=== PATIENT | male | born 1945 | race Caucasian/White ===

== ENCOUNTER 2016-06-08 09:20 | Inpatient (IN) | payer MEDICARE ==
[~2016-06-08] VITALS: Ht 167.6 cm; Wt 44.2 kg
--- NOTE | ~2016-06-08 | PR ---
[place], [place] PROGRESS NOTE NAME: ALE SALINAS [facility] #: [id number] UNIT #: [id number] ROOM: 408 DOCTOR: DANIELA MICHELLE MD,YANIRA BIRTHDATE: [birth year] DOS: 06/12/2016 SUBJECTIVE: He has been noted comfortable at this time without any respiratory distress. The patient has been noted in confusional status at the present time and was noted with talking to himself. There are no signs of respiratory distress. OBJECTIVE: VITAL SIGNS: Normal temperature, respiratory rate 18, heart rate 91, blood pressure 130/78. Pulse oxygen saturation noted on 1 liter nasal cannula 98% saturation. HEENT: Shows head was atraumatic. Eyes nonicterus. NECK: Supple. CARDIOVASCULAR SYSTEM: S1, S2 is audible. LUNGS: The patient was noted without any wheezing or crackles. The breath sounds noted mildly decreased bilaterally. ABDOMEN: Soft, nontender. LABORATORY DATA: CMP done this morning, patient noted normal BUN and creatinine. Potassium 3.4. CBC: WBC count normal, hemoglobin 9.2, hematocrit 28.4, platelet count 143,000. IMPRESSION: 1. The patient who has been currently noted with change in mental status and confusion, rule out hypercarbia for this patient. 2. Acute exacerbation of chronic obstructive pulmonary disease, acute tracheobronchitis with intermittent sputum expectoration and chest congestion. PLAN OF TREATMENT: Order the arterial blood gases for this patient for assessment of the hypercarbia in ventilatory status. In the meantime, continue treatment, plan of management. Usual care. All other supportive therapy, plan of care and management. YANIRA SUAREZ MD CM:PNTRANS [id number] YANIRA MICHELLE MD 06/12/16 1420 interface
--- NOTE | ~2016-06-08 | CON ---
[place], [place] RE[facility] OF CON[facility]ULTATION [id number] UNIT #: [id number] ROOM: 408 DOCTOR: KARY DEE ED.D (DEVIKA) BIRTHDATE: [birth year] DOS: 06/12/2016 HISTORY OF PRESENT ILLNESS: The patient is a 71-year-old male referred by Dr. Barros for competency evaluation. At the present time, this patient is on the 4th floor at [facility]. He was admitted from a local assisted living facility. I believe the name of the facility is the [facility]. This patient's medical history is pertinent for urinary tract infection, hypertension, COPD, atrial fibrillation, GI bleed, anemia, vitamin D deficiency, coronary artery disease, and benign prostatic hypertrophy. I attempted to interview this patient, but he somewhat alert, but he was not oriented, whatsoever. After speaking with the nurse, he was oriented to time yesterday, but today he was unable to answer any questions whatsoever. It is clear that this patient is not competent to make informed healthcare decisions. I am not certain whether or not this patient does have a healthcare power of payroll director, but he is clearly not capable of making any decisions on his own. Case management services should be involved to find out whether or not he has a power of payroll director for healthcare, but he is unable to make any decisions whatsoever. He appears to be quite delirious and was apparently seeing things, although today cannot even communicate that issue. DIAGNOSIS: Delirium, not otherwise specified. RECOMMENDATIONS: 1. The [facility] facility should be contacted regarding his healthcare power of payroll director. 2. If he has healthcare surrogate, they should be making all decisions because he is clearly not competent to make informed healthcare decisions. Thank you very much for this consult. KARY DEE ED.D CM:CONSTR:REPORT OF CONSULTATION 1216 06/12/16 1340 interface
--- NOTE | ~2016-06-08 | PR ---
[place], [place] PROGRESS NOTE NAME: ALE SALINAS UNIT #: [id number] ROOM: 408 DOCTOR: YANIRA COBB MD BIRTHDATE: [birth year] DOS: 06/13/2016 PULMONARY PROGRESS NOTE SUBJECTIVE: The patient was seen and examined on 06/13/2016. He has been noted comfortable at this time, resting on his bed. He has been noted with improvement in the mental status changes. OBJECTIVE: VITAL SIGNS: The patient shows a normal temperature, respiratory rate 20, heart rate 99, blood pressure 120/77. Pulse oxygen saturation of the patient was recorded as 91% on 3 liters nasal cannula. HEENT: Examination shows head was atraumatic. Eyes nonicterus. NECK: Supple. CARDIOVASCULAR: S1, S2 audible. LUNGS: The patient was noted without any wheezing or crackles at this time. ABDOMEN: Soft, nontender. LABORATORY DATA: CBC of the patient this morning, hemoglobin 9.5, hematocrit 30.3, platelet count was normal. The vancomycin trough level yesterday noted normal. Arterial blood gases pH of 7.46, pCO2 of 37, pO2 of 63 noted on 2 liters nasal cannula yesterday. BMP was noted normal today. IMPRESSION: 1. The patient with reduction and gradual improvement noted in the respiratory status for acute exacerbation of chronic obstructive pulmonary disease. 2. Change in mental status, exact etiology unclear. The patient seemed to be appearing better today at the time of the assessment. 3. Cough, which has been noted nonproductive for the patient intermittently. 4. Overall debility and muscle deconditioning. PLAN OF TREATMENT: Continue optimizing nutrition status. Change the dose of Solu-Medrol to 40 mg daily for this patient from tomorrow. All other supportive plan and management. Nutritional support. [place], [place] PROGRESS NOTE NAME: ALE SALINAS UNIT #: [id number] ROOM: 408 DOCTOR: YANIRA COBB MD BIRTHDATE: [birth year] YANIRA SUAREZ MD CM:PNTRANS [id number] YANIRA MICHELLE MD 06/13/16 4446 interface
--- NOTE | ~2016-06-08 | PR ---
[place], [place] PROGRESS NOTE NAME: ALE SALINAS UNIT #: [id number] ROOM: 408 DOCTOR: YANIRA COBB MD BIRTHDATE: [birth year] DOS: 06/11/2016 SUBJECTIVE: He has been still noted chest congestion and coughing. Denies symptoms of abdominal pain. He has been noted small amount of sputum expectoration. Culture of the sputum for the patient was noted no bacterial growth, which were taken in a couple of days ago. OBJECTIVE: VITAL SIGNS: Showed normal temperature, respirations 18, heart rate of 139-99. The blood pressure 160/80-150/80. Pulse oxygen saturation of the patient recorded on 1 liter nasal cannula 96% saturation. HEENT: Shows loss of muscle mastication. NECK: Supple. CARDIOVASCULAR SYSTEM: S1, S2 audible. LUNGS: Moderate general reduction of the breath sounds bilaterally, scattered wheezing. There were no crackles. ABDOMEN: Soft, nontender. LABORATORY DATA: The patient's CMP was noted as normal today. The CBC today: WBC count 13.7, hemoglobin 10.9, hematocrit 33.9, platelet count of 287,000. Sputum culture, no bacterial growth from the 21st of this month. ESR was noted as 11. Vancomycin level was noted yesterday 5.7. IMPRESSION: 1. The patient who has been currently treated for acute exacerbation of chronic obstructive pulmonary disease, acute tracheobronchitis still noted with ineffective cough, inability to expectorate sputum. 2. Protein-calorie malnutrition. 3. Previous history of oropharyngeal dysphagia. 4. Pericardial effusion. The patient was also noted echogenic material. The patient, etiology unclear. The patient has been currently monitored by the Cardiology Services. PLAN OF TREATMENT: Continue current plan of management. Use of the flutter valve, Mucinex, oral corticosteroids, bronchodilators, await for the assessment and any further plan of assessment form the Cardiology Services. Other usual previous treatment, plan to be continued. Usual care. All other supportive care and therapies. [place], [place] PROGRESS NOTE NAME: ALE SALINAS UNIT #: [id number] ROOM: 408 DOCTOR: YANIRA COBB MD BIRTHDATE: [birth year] YANIRA SUAREZ MD CM:PNTRANS 00 20 YANIRA MICHELLE MD 06/11/161120 interface
--- NOTE | ~2016-06-08 | PR ---
[place], [place] PROGRESS NOTE NAME: ALE SALINAS UNIT #: [id number] ROOM: 408 DOCTOR: YANIRA COBB MD BIRTHDATE: [birth year] DOS: 06/10/2016 PULMONARY FOLLOWUP NOTE SUBJECTIVE: He has been noted with continued gradual reduction and improvement in the respiratory symptoms. The coughing has been subsiding. There were no symptoms of chest pain or any abdominal pain. Shortness of breath has been improving. OBJECTIVE: VITAL SIGNS: Showed normal temperature, respiratory rate 20, heart rate of 106-57, blood pressure is 147/90-134/84. The pulse oxygen saturation on 2 L nasal cannula 100% saturation. HEENT: Examination showed no new change. NECK: Supple. CARDIOVASCULAR SYSTEM: S1, S2 audible. LUNGS: Shows scattered occasional wheezing, no crackles. ABDOMEN: Soft, flat, nontender. EXTREMITIES: Show no edema. LABORATORY DATA: Culture of the sputum preliminary noted with normal marlys for the patient. Final culture results are pending from 06/08/2016. Echocardiogram of the patient that was done for the patient on 06/09/2016 of the patient was assessed by the Cardiology Services for the patient described as findings of left ventricular ejection 70%. Small to moderate pericardial effusion for the patient was described with echogenic material. There was no tamponade. The culture of the urine for the patient noted with greater than 100,000 colony forming units of gram-positive cocci. IMPRESSION: 1. Resolving acute exacerbation of chronic obstructive pulmonary disease with acute tracheobronchitis of the patient. 2. Moderate protein-calorie malnutrition status as well. 3. Pericardial effusion of the patient with some echogenic material for the patient, significance was unknown, might require further assessment with the possibility of pericardial fluid drainage for this patient for further assessment. PLAN OF TREATMENT: From the pulmonary standpoint, no changes in treatment needs to be done. Continue optimizing nutritional status. Continue other supportive therapy, plan of management, and other care. Usual treatment, all other supportive care and therapies. Usual medical management. Continuation of current antibiotics. [place], [place] PROGRESS NOTE NAME: ALE SALINAS UNIT #: [id number] ROOM: 408 DOCTOR: YANIRA COBB MD BIRTHDATE: [birth year] YANIRA SUAREZ MD CM:PNBROWN [id number] YANIRA MICHELLE MD 06/10/16 1320 interface
--- NOTE | ~2016-06-08 | PR ---
[place], [place] PROGRESS NOTE NAME: ALE SALINAS [facility] #: [id number] UNIT #: [id number] ROOM: 408 DOCTOR: DANIELA MICHELLE MD,YANIRA BIRTHDATE: [birth year] DOS: 06/14/2016 SUBJECTIVE: He has been noted with symptoms of hallucinations intermittently. Denies symptoms of chest pain. He denies any symptoms of sputum expectoration, was noted with cough, shortness of breath was noted absent at rest. OBJECTIVE: VITAL SIGNS: Normal temperature, respiratory rate 20, heart rate 97, blood pressure 170/78-131/72. The pulse oxygen saturation for the patient recorded on 3 liters nasal cannula 97% saturation. HEENT: Shows head was atraumatic. Eyes nonicterus. NECK: Supple. CARDIOVASCULAR SYSTEM: S1, S2 audible. LUNGS: For the patient was noted without any wheezing or crackles at the present time. ABDOMEN: Soft, nontender. LABORATORY DATA: Urine for legionella antigen noted negative. CBC this morning, hemoglobin 9.3, hematocrit 29.5, platelet count was normal, WBC count was normal. BMP of the patient this morning was noted as potassium was 3.3. IMPRESSION: The patient with hallucination. The patient with psychotic symptom, the patient was noted with resolving acute exacerbation of chronic obstructive pulmonary disease, acute tracheobronchitis progressively. PLAN OF TREATMENT: Continuation of the bronchodilators, oxygen supplementation, reduce the Solu-Medrol further down to 30 mg daily. Other supportive plan of management as well. Psychiatry consultation, the patient will be requested for this patient to assess the patient for current psychotic symptoms and to start the patient on appropriate medication if needed. Other supportive plan of management at this time will be continued. Usual medical management, plan of care. YANIRA SUAREZ MD CM:PNBROWN [id number] YANIRA MICHELLE MD 06/14/16 1501 interface
--- NOTE | ~2016-06-08 | PR ---
[place], [place] PROGRESS NOTE [id number] UN[facility] #: [id number] ROOM: 408 DOCTOR: DANIELA MICHELLE MD,YANIRA BIRTHDATE: [birth year] DOS: 06/15/2016 SUBJECTIVE: The patient has been still noted with hallucination, the patient with confusional status. He has not been noted symptoms of chest pain, coughing with sputum expectoration. OBJECTIVE: VITAL SIGNS: Shows normal temperature, respiratory rate 18, heart rate 88, and blood pressure 144/74. The pulse oxygen saturation on 2 liters nasal cannula 98% saturation. HEENT: Shows no acute change. NECK: Supple. CARDIOVASCULAR SYSTEM: S1, S2 audible. LUNGS: Noted without any wheezing. There were no crackles. ABDOMEN: Soft, nontender. IMPRESSION: The patient who has been still noted with hallucination with the psychotic symptoms with resolving acute exacerbation of chronic obstructive pulmonary disease, acute tracheobronchitis. Arterial blood gases which were done previously do not show hypercarbia. PLAN OF TREATMENT: Continuation of the current medical management. The patient was seen by the Psychiatry Services and was started on the Cymbalta 30 mg daily. Solu-Medrol dose has been also decreased for this patient to 30 mg daily. Continue bronchodilator treatment, plan of management. Usual care. YANIRA SUAREZ MD CM:PNTRANS 0930 1503 YANIRA MICHELLE MD 06/15/16 1503 interface
--- NOTE | ~2016-06-08 | CON ---
[place], [place] REPORT OF CONSULTATION NAME: ALE SALINAS [facility] #: [id number] UNIT #: [id number] ROOM: 408 DOCTOR: YANIRA COBB MD BIRTHDATE: [birth year] DOS: 06/09/2016 REASON FOR CONSULTATION: Assess the patient with symptoms of shortness of breath and other problems. REQUESTING PHYSICIAN: Hospitalist services. HISTORY OF PRESENT ILLNESS: This is a 71-year-old white male known with history of end-stage emphysema, chronic hypoxic respiratory failure, stays in assisted living facility. The patient presented to the hospital for the patient as he has noted symptoms of increased shortness of breath started 24 hours prior to the presentation to the hospital. Shortness of breath has been noted progressively worse for this patient, associated with some cough as well. The patient denies any symptoms of chest pain or any abdominal pain with that. He also stated that he has been wheezing. The coughing has been noted moderate to severe with some sputum expectoration described this morning. REVIEW OF SYSTEMS: The remaining systems were reviewed with this patient. They were noted as follows: CONSTITUTIONAL SYMPTOMS: The patient noted symptoms of fatigue and tiredness. He does not recall any fever. Denies any chills. EYES: Denies any burning, redness, or tenderness. EARS, NOSE, AND THROAT SYMPTOMS: No sore throat, hoarseness, or otalgia. CARDIOVASCULAR: Denies anginal pain, edema or pain of the lower extremities. GASTROINTESTINAL SYMPTOMS: Denies any symptoms of hematemesis, melena, or hematochezia. The patient has been noted with history of past oropharyngeal dysphagia, which has been treated with speech therapy and modification of diet with thickened liquids. GENITOURINARY SYMPTOMS: No dysuria, suprapubic pain, hematuria. MUSCULOSKELETAL SYMPTOMS: Denies acute joint pain, redness, or tenderness. SKIN: No lesions or rashes. CENTRAL NERVOUS SYSTEM: General weakness for the patient was described without any symptoms of current seizures for the patient, tingling sensation, migraine headache, or diplopia. Remaining systems were reviewed with the patient. They were noted all negative. PAST MEDICAL HISTORY: 1. Noted with recent hospitalization in this hospital under the care of hospitalist services for 2 days for the patient for the medical management of failure to thrive with malnutrition status, chronic anemia, and other problems. The patient had been treated in this hospital and then subsequently discharged to the assisted living facility. 2. Past medical history of centrilobular emphysema. 3. History for allergic rhinitis. 4. Chronic oropharyngeal dysphagia. 5. Chronic hypoxic respiratory failure, use of oxygen 2-3 L nasal cannula continuous use. 6. Hypercholesterolemia. 7. Chronic atrial fibrillation. [place], [place] REPORT OF CONSULTATION NAME: ALE SALINAS UNIT #: [id number] ROOM: [facility] DOCTOR: EDDIE COBB MDM BIRTHDATE: [birth year] 8. Past respiratory failure, intubation, and mechanical ventilation. 9. Abdominal aortic aneurysm. PAST SURGICAL HISTORY: Noted as: 1. Intubation and mechanical ventilation. 2. Fiberoptic bronchoscopy. 3. EGD and colonoscopy. 4. Endovascular stent for the patient for the ____ abdominal aortic aneurysm. SOCIAL HISTORY: The patient is not , does not have any children or any close family relatives. He lives in assisted living facility. History of tobacco use noted since teenager, a pack of cigarettes per day with ____ use of a few cigarettes intermittently at times. There is no history of alcohol use or illicit drug use. FAMILY HISTORY: Noted unknown. MEDICATIONS: Current administered medication for the patient were noted as use of simvastatin, vitamin D, Plavix, finasteride, aspirin, loratadine, Lovenox for DVT prophylaxis, Protonix, Flomax, Dulera, Flonase, Mucinex, IV Solu-Medrol 60 mg q. 8 hours, Levaquin, and IV Zosyn and other antibiotics. DRUG ALLERGIES: Noted as no known drug allergies. PHYSICAL EXAMINATION: GENERAL: This is a 71-year-old male who has currently noted comfortable without any distress. Height of 5 feet 6 inches, weight of 97 pounds for this patient with BMI 15.7. VITAL SIGNS: For the patient were recorded as normal temperature, respiratory rate 18-20, heart rate of 80-82, blood pressure 132/81-118/90. Pulse oxygen saturation for the patient noted on 2 L nasal cannula 99% saturation. HEENT: Head was atraumatic. Eyes: No icterus. NECK: Supple. CARDIOVASCULAR: S1, S2 is audible. LUNGS: The patient was noted without any acute crackles. The wheezing of the patient was noted in the lungs bilaterally. ABDOMEN: Soft, nontender. Bowel sounds present. EXTREMITIES: Shows no edema, clubbing, or cyanosis. The extremities show loss of muscle mass for the patient. SKIN: No lesions or rashes. CENTRAL NERVOUS SYSTEM: Cranial nerves 2-12 intact for this patient was noted without any gross focal deficit. LABORATORY DATA: CBC for this patient that were noted on 06/08/2016, WBC count was normal, hemoglobin 10.6, hematocrit 32.3, platelet count 241,000. Lactic acid 1.2 noted at admission on 06/08/2016. CMP on admission, 06/08/2016, noted normal BUN and creatinine, potassium 3.2, sodium 146. Albumin 2.4. The arterial blood gas on 4 L nasal cannula, pH of 7.43, pCO2 of 52, pO2 of 133. CK-MB and troponin of the patient which were done on the for this patient were noted with a troponin 0.068 with normal CK and MB. The first set for the [place], [place] REPORT OF CONSULTATION NAME: ALE SALINAS UNIT #: [id number] ROOM: [facility] DOCTOR: DANIELA MICHELLE [facility] BIRTHDATE: [birth year] patient on the shows troponin 0.089 with normal CPK and MB. PT/PTT of the patient this morning was noted normal. CMP this morning was noted as normal BUN and creatinine. Albumin still noted mildly decreased at 3.0. Chest x-ray of the patient that was reviewed for this patient on 06/08/2016 for the patient shows suspected infiltration in the left perihilar area. CT scan of the chest for the patient that was done for this patient on this admission on 06/08/2016 for this patient was reviewed, shows small patches of focal infiltration were noted in the left lower lobe and the right lower lobe with a subcentimeter few nodules were noted in the lung with diffuse emphysematous changes in the lungs bilaterally with centrilobular emphysema. There was no lymphadenopathy. The abdominal CT scan for the patient was also completed for this patient that was ordered for this admission for the patient with contrast for the patient described asymptomatic 5.1 x 4.4 cm aneurysm of the abdomen with intraluminal stent grafts. IMPRESSION: 1. The patient who has been currently noted with multifocal small pneumonia for this patient with acute exacerbation of chronic obstructive pulmonary disease. 2. The patient with evidence of severe centrilobular emphysema for the patient as well. 3. History of low-grade intermittent tobacco use at time. 4. Severe protein calorie malnutrition. 5. Oropharyngeal dysphagia history was known previously as well. 6. History of abdominal aortic aneurysm previously. 7. Recurrent pulmonary nodules. The patient may be considered for infectious etiology; however, metastatic malignancy would be considered with further assessment of the patient as an outpatient for current abnormal findings noted on CT scan of the chest. The etiology for patient of current infection to be considered as gram-positive and gram-negative infections. PLAN OF TREATMENT: Collect the sputum for Gram stain and culture. Continue bronchodilators. Reduce the dose of Solu-Medrol. Antibiotic spectrum to be reduced after the availability of the sputum and blood cultures. Use of the Mucinex for the patient in the form of Robitussin-DM to help mobilize secretions. Obtain the prealbumin level for the patient. Order the patient's nutritional supplements for this patient. Speech assessment of the patient needs to be done as well. The patient would not require possibility of any repeat modified barium swallow. At the present time, he is being empirically treated for the patient's past known history of oropharyngeal dysphagia with nectar thick consistency of the liquids. Supportive plan of management. Further assessment as an outpatient for the recurrent pulmonary nodules for this patient to be done for the patient to rule out any malignancy. Abstinence from tobacco use was advised. Aspiration precautions. Other supportive plan of management. Thanks for allowing me to participate in the care of this patient. [place], [place] REPORT OF CONSULTATION NAME: ALE SALINAS UNIT #: [id number] ROOM: 408 DOCTOR: YANIRA COBB MD BIRTHDATE: [birth year] YANIRA SUAREZ MD CM:CONSTR:REPORT OF CONSULTATION 1230 06/09/16 1341 interface
--- NOTE | ~2016-06-08 | CON ---
[place], [place] REPORT OF CONSULTATION NAME: ALE SALINAS UNIT #: [id number] ROOM: 408 DOCTOR: DARYN MCKEON MD BIRTHDATE: [birth year] DOS: 06/11/2016 REASON FOR CONSULTATION: Tachycardia. CONSULTING PHYSICIAN: Dr. Sosa. CLINICAL HISTORY: The patient is a 71-year-old patient with history of hypertension, COPD who presented to the Emergency Room with shortness of breath, which is progressive, but he denies any chest pain, palpitations or dizziness. No syncope, no orthopnea. He was on supplemental oxygen at shelter. The patient is somewhat a poor historian and hence, history was obtained from the medical record as well as the Emergency Room documentation. No fever or chills. No nausea, vomiting, diarrhea. No blurred vision or double vision, no headaches. No hematuria, dysuria, or melena. The patient was found to have tachycardia and hence cardiology was consulted. REVIEW OF SYSTEMS: Review of the 8 systems negative except as mentioned above. PAST MEDICAL HISTORY: 1. Hypertension. 2. COPD. 3. Home oxygen. 4. Atrial fibrillation. 5. History of GI bleed. 6. Dyslipidemia. 7. Anemia. 8. Vitamin D deficiency. PAST SURGICAL HISTORY: History of cardiac stents, history of cataract surgery. SOCIAL HISTORY: The patient does not drink, does not use illicit drugs. The patient has a history of smoking, but quit about 4 to 5 years ago. FAMILY HISTORY: Father at the age of 76 from myocardial infarction. Mother at the age of 83 from cancer. ALLERGIES: The patient has no known drug allergies. HOME MEDICATIONS AND CURRENT MEDICATIONS: Reviewed. IMPRESSION: 1. Tachyarrhythmia, mostly sinus tachycardia. 2. Hypertension. 3. Paroxysmal atrial fibrillation. 4. Chronic obstructive pulmonary disease. 5. History of coronary artery disease. 6. Anemia. 7. Dyslipidemia. PHYSICAL EXAMINATION: [place], [place] REPORT OF CONSULTATION NAME: ALE SALINAS UNIT #: [id number] ROOM: 408 DOCTOR: DARYN MCKEON MD BIRTHDATE: [birth year] VITAL SIGNS: Blood pressure 158/90, pulse 118, respiratory rate is 20. GENERAL: Alert, comfortable, in no acute distress. HEENT: Pupils are round. No jaundice. NECK: Supple, no distended neck veins, no carotid bruit. CHEST: Symmetrical, nontender. LUNGS: Diffuse scattered rhonchi. HEART: Mostly irregular, slightly tachycardic, grade 1/6 systolic murmur. ABDOMEN: Benign, nontender. Bowel sounds normal. EXTREMITIES: Showed trace edema. Distal pulses are palpable. SKIN: Warm and dry. No cyanosis, no clubbing. NEUROLOGIC: The patient is alert, oriented. No focal neurologic deficit. REVIEW OF THE DIAGNOSTIC TESTS: Her labs and EKG reviewed. His echo from this admission showed EF of 70% with mild tricuspid regurgitation and a small to moderate pericardial effusion. His cardiac troponin was borderline elevated at 0.065. DIAGNOSTIC IMPRESSION: 1. Tachyarrhythmia, mostly sinus tachycardia. 2. Paroxysmal atrial fibrillation. 3. Borderline elevation of troponin, patient is chest pain free. 4. Anemia. 5. Dyslipidemia. 6. Chronic obstructive pulmonary disease. 7. Home oxygen. 8. Small to moderate pericardial effusion. 9. Mild tricuspid regurgitation. RECOMMENDATIONS: 1. He denies any chest pain. 2. Start a beta alma 25 mg p.o. twice a day for tachycardia and also blood pressure. 3. If his blood pressure tolerates, we will resume his home verapamil 240 mg. 4. Continue to monitor his heart rate and blood pressures. 5. There is no family at bedside. 6. Continue the rest of his current medications. DARYN MCKEON MD CM:CONSTR:REPORT OF CONSULTATION 10 06/12/16 8579 interface
--- NOTE | ~2016-06-08 | PROC NOTE ---
[place], [place] PROCEDURE NOTE [facility]: [id number] UNIT #: [id number] ROOM: 408 DOCTOR: ELI HADLEY BIRTHDATE: [birth year] DOS: MODIFIED BARIUM SWALLOW PAST MEDICAL HISTORY: The patient is a pleasant 71-year-old male who is very confused and unable to cooperate. He is even unable to feed himself. He is familiar to speech pathology as he had a modified in 04/2013 in which he silently aspirated thin liquids and was recommended nectar liquids with a regular diet. The patient is currently on a regular diet with recommendations for nectar liquids for bedside swallow per Speech. METHODS AND MATERIALS: The patient was in a wheelchair. He was viewed in the lateral plane. The study was done in conjunction with Dr. Gutierrez. The patient was then fed by this therapist. He was administered nectar thick liquid via teaspoon and cup, thin liquid via teaspoon and cup, pudding mixed with barium paste and a solid texture mixed with barium paste. ORAL PHASE: The patient demonstrated [id number] oral phase dysphagia with reduced ability to form and control a cohesive bolus on thin liquids. He did have improved bolus cohesion and control of nectar thick liquids via cup, the pudding and the solid. He had anterior lengthy chewing of the solid consistency, but it was adequate and he cleared his oral cavity. There was some loss of residue of liquid and barium paste that was mild that remained in his mouth from earlier presentations and he lost it posteriorly during chewing, it fell into the vallecula, but it did not affect the safety of his swallow. There was premature loss of thin liquid prior to the swallow, it fell into the vallecula, then the swallow was triggered, it was due to gravity and poor control of thin liquids, but no aspiration or penetration was noted. PHARYNGEAL PHASE: The patient demonstrated a mild delay with the swallow triggered in the vallecula averaging 2.0-2.5 seconds on all consistencies. He had adequate laryngeal elevation and airway protection. There was some mild amount of residue that remained in the pharynx, but it was cleared with sequential swallows and did not affect safety of his swallow. RECOMMENDATIONS AND IMPRESSIONS: Based on the above, it is recommended patient be placed on a nectar thick liquid diet with soft foods cut up for him. It is of concern that he has anterior and lengthy chewing and he is very confused, therefore regular foods may limit his p.o. intake. It is recommended he be assisted by staff as he is unable to feed, but is cooperative at bedside for someone to feed him. It is recommended he be sit upright 90 degrees and that you alternate liquids and foods and keep him upright 40 minutes after meals. When the patient is discharged, it is recommended he be seen by Speech to train staff and carry over safe swallowing strategies as well as consider patient for Michele water protocol to maintain hydration as he appears to be a candidate for the Michele water protocol based on his MBS and how he tolerated thin liquids under [employer] supervision and nursing supervision. The patient will be followed for caregiver training and assessment for safety with sips of thin liquid during inpatient stay; however, he is not a candidate for extensive speech therapy as he is unable to follow commands and cooperate due to cognitive status. [place], [place] PROCEDURE NOTE NAME: ALE SALNIAS UNIT #: [id number] ROOM: 408 DOCTOR: ELI HADLEY BIRTHDATE: [birth year] Thank you for this referral. ELI HADLEY CM:PROCNOTE:PROCEDURE NOTE [id number] ELI HADLEY
--- NOTE | ~2016-06-08 | PR ---
[place], [place] PROGRESS NOTE NAME[id number] UNIT #: [id number] ROOM: 408 DOCTOR: DAVID ALFARO MD BIRTHDATE: [birth year] DOS: 06/14/2016 CARDIOLOGY PROGRESS NOTE SUBJECTIVE: The patient was seen at his bedside today, 06/14/2016 for followup of atrial fibrillation. He is a 71-year-old man who has a history of dementia who presented to the hospital with shortness of breath. He was tachycardic on admission and was started on a beta alma for control of his tachycardia and blood pressure. He does seem to be tolerating this and verapamil quite well. Today, he was sleeping and lying almost flat when I entered the room, but he aroused easily. He denies any palpitations, chest pain or dyspnea at rest. PHYSICAL EXAMINATION: VITAL SIGNS: His pulse is 97 and somewhat irregular. Blood pressure is 170/78. He weighs 44.2 kg and has a body mass index of 15.7. NECK: Supple. He has no jugular distention. LUNGS: Respirations are unlabored. He has decreased breath sounds at the bases. HEART: Has distant tones which are very difficult to hear. ABDOMEN: Soft. EXTREMITIES: Showed no edema. LABORATORY DATA: Electrocardiogram shows sinus rhythm and sinus tachycardia with PACs. Hemoglobin is 9.3, white count 6800, platelet count 240,000. Sodium 146, potassium 3.3, BUN 21, creatinine 0.83. IMPRESSION: 1. Paroxysmal atrial fibrillation, the patient is currently in sinus rhythm. 2. Sinus tachycardia on admission, improved. 3. Hypertension. 4. Chronic obstructive pulmonary disease. 5. Dementia (Alzheimer's type). PLAN: We will continue to adjust his medications as tolerated by his heart rate and blood pressure. No other advanced cardiac evaluation is planned at this time. We thank Dr. Sosa and the hospitalist physicians for asking our advice regarding his care. [place], [place] PROGRESS NOTE NAME: ALE SALINAS UNIT #: [id number] ROOM: 408 DOCTOR: DAVID ALFARO MD BIRTHDATE: [birth year] DAVID ALFARO MD CM:PNTRANS [id number] DAVID ALFARO MD 06/14/162218 interface
--- NOTE | ~2016-06-08 | CON ---
[place], [place] REPORT OF CONSULTATION NAME: ALE SALINAS UNIT #: [id number] ROOM: 408 DOCTOR: MATIAS LAGUNAS MD BIRTHDATE: [birth year] DOS: 06/14/2016 CHIEF COMPLAINT: "Yeah, I don't know what is happening here." HISTORY OF PRESENT ILLNESS: This is a 71-year-old white male who was admitted approximately a week ago due to worsening COPD and shortness of breath. In the course of his treatment for medical conditions, he was found to be increasingly confused and also despondent. MENTAL STATUS: Psychiatrically, he is alert and oriented to self only, stating that he has been here for 1 or 2 days and he could not remember where he was living prior. His responses to me were often times inappropriate and disjointed and fragmented. He does appear depressed and despondent and was on the verge of tears at one point during the interview. DIAGNOSIS: Major depression, recurrent, and Alzheimer's dementia. PLAN: I will go ahead and start him on Cymbalta 30 mg at bedtime to help with his depression and anxiety. Also, start him on Exelon patch 4.6 mg a day. Once he is medically stable, he is a candidate for the [facility]. MATIAS LAGUNAS MD CM:CONSTR:REPORT OF CONSULTATION 0929 06/14/16 1002 interface
[~2016-06-08 09:20] MED LIST: ALAVERT10 M1 PO; ALBUTEROL0.09 MG/A2 INH; ALBUTEROL2.5 MG/0.5 INH; ALLERGY RELIEF10 M1 PO; ASPIRIN81 M1 PO; B12,B-12,B 12500 MC1 PO; CARDIZEM CD240 MG PO; CARDIZEM LA240 MG PO; CEFTIN500 MG PO; CLOPIDOGREL75 MG PO; COLACE-T100 MG PO; COLACE100 MG PO; D-1000 185 MG-11 TAB PO; DULCOLAX10 MG PO; LEVAQUIN500 M2 PO; LEVOFLOXACIN500 MG PO; LOPRESSOR25 MG PO; LORADAMED10 MG PO; MEDROL DOSEPAK4 MG PO; METOPROLOL25 MG PO; MOM30 ML PO; NASALIDE0.025 MG/A NAS; NASAREL1 EA NAS; NICOTINE T21 MG/24 H TD; OXYGEN NAS; PANTOPRAZOLE SO40 MG PO; PANTOPRAZOLE40 M1 PO; PREDNISONE10 MG PO; PROPAFENONE HC150 MG PO; PROSCAR5 M1 PO; SIMVASTATIN20 MG PO; SPIRIVA -- 3018 MCG INH; SPIRIVA18 MCG PO; SYMBICORT1 AE1 INH; SYMBICORT1 AER INH; TAMSULOSIN HCL0.4 MG PO; TYLENOL650 M1 PO; VERAPAMIL HCL240 MG PO; VERAPAMIL HCL80 MG PO; VITAM PO; VITAMIN A PO; VITAMIN D2400 IU PO; ZOCOR10 MG PO; ZOCOR20 MG PO
[2016-06-08 09:21] VITALS: BP 121/77
[2016-06-08 09:40] LABS: BASO % 0.2 % (0.0-1.0); EOS # 0.3 10*3/uL (0.0-0.4); EOS % 3.1 % (1.0-4.0); HEMATOCRIT 32.3 % (42.0-52.0); HEMOGLOBIN 10.6 g/dl (14.0-18.0); IG # 0.1 10*3/uL (0.0-0.1); LYMPH # 1.2 10*3/uL (1.3-4.4); MEAN CELL VOLUME 88.5 fl (80.0-94.0); MEAN CORPUSCULAR HGB CONC 32.8 g/dl (33.0-37.0); MEAN PLATELET VOLUME 9.3 fl (9.6-12.3); MONO # 0.6 10*3/uL (0.1-1.0); MONO % 7.1 % (3.0-9.0); NEUT # 6.4 10*3/uL (2.3-7.9); NEUT % 74.9 % (47.0-73.0); PLATELET COUNT AUTOMATED 241 10*3/uL (130-400); RED BLOOD COUNT 3.65 10*6/uL (4.50-5.90); WHITE BLOOD COUNT 8.6 10*3/uL (4.8-10.8)
[2016-06-08 09:49] LABS: PROTHROMBIN TIME 10.7 SECONDS (9.0-12.4)
[2016-06-08 09:56] LABS: ALBUMIN 3.3 gm/dl (3.1-4.5); ALKALINE PHOSPHATASE 61 U/L (45-117); BILIRUBIN, TOTAL 0.4 mg/dl (0.2-1.0); BUN 16 mg/dl (7-24); C-REACTIVE PROTEIN 1.69 MG/DL (0-0.3); CARBON DIOXIDE 36 mmol/L (21-32); CHLORIDE 100 mmol/L (98-107); CPK 28 U/L (39-308); EST GLOM FILT AFRICAN AMERICAN > 60 ml/min; GLUCOSE 114 mg/dL (65-99); MAGNESIUM 2.4 mg/dL (1.5-2.1); POTASSIUM 3.2 mmol/L (3.5-5.1); SGOT/AST 15 IU/L (3-35); SGPT/ALT 15 U/L (12-78); SODIUM 146 mmol/L (136-145); TOTAL PROTEIN 7.3 gm/dL (6.4-8.2)
[2016-06-08 09:57] LABS: CKMB < 0.5 ng/ml (0.5-3.6)
[2016-06-08 09:59] LABS: TROPONIN I 0.105 ng/ml (<0.045)
[2016-06-08 11:37] LABS: ABG BASE EXCESS 9.5 mmol/L (-2.0-2.0); ABG CO2 CONTENT 36.4 mmol/L (23-27); ABG HCO3 34.8 mmol/l (22-26); ABG TEMPERATURE 98.3 F (98.0-99.0); ARTERIAL BLOOD GAS PH 7.439 (7.35-7.45)
[2016-06-08 12:40] VITALS: BP 132/80
[2016-06-08 13:48] VITALS: BP 116/87
[2016-06-08 16:00] VITALS: BP 123/86
[2016-06-08 18:11] LABS: CKMB 0.8 ng/ml (0.5-3.6)
[2016-06-08 18:17] LABS: TROPONIN I 0.089 ng/ml (<0.045)
[2016-06-08 20:00] VITALS: BP 128/69
[2016-06-08 22:10] LABS: BILIRUBIN NEGATIVE (NEGATIVE); BLOOD 3+ (NEGATIVE); CLARITY SL CLOUDY (CLEAR); COLOR YELLOW (YELLOW); GLUCOSE NEGATIVE (NEGATIVE); KETONE TRACE (NEGATIVE); LEUKO ESTERASE TRACE (NEGATIVE); NITRITE NEGATIVE (NEGATIVE); PH 7.5 (5.0-9.0); PROTEIN TRACE (NEGATIVE); SPECIFIC GRAVITY 1.015 (1.005-1.030)
[2016-06-08 22:27] LABS: BACTERIA 2+; RBC 41-50 rbc/hpf (0-2); URINE REFLEX COMMENT YES (NO)
[2016-06-09] VITALS: BP 132/81
[2016-06-09 00:51] LABS: CKMB 1.2 ng/ml (0.5-3.6)
[2016-06-09 00:53] LABS: TROPONIN I 0.068 ng/ml (<0.045)
[2016-06-09 06:24] LABS: HEMATOCRIT 29.8 % (42.0-52.0); HEMOGLOBIN 9.4 g/dl (14.0-18.0); IG # 0.1 10*3/uL (0.0-0.1); LYMPH # 0.5 10*3/uL (1.3-4.4); LYMPH % 9.5 % (27.0-41.0); MEAN CELL VOLUME 91.1 fl (80.0-94.0); MEAN CORPUSCULAR HGB 28.7 pg (27.0-31.0); MEAN CORPUSCULAR HGB CONC 31.5 g/dl (33.0-37.0); MEAN PLATELET VOLUME 9.6 fl (9.6-12.3); MONO # 0.1 10*3/uL (0.1-1.0); MONO % 1.2 % (3.0-9.0); NEUT % 87.9 % (47.0-73.0); PLATELET COUNT AUTOMATED 221 10*3/uL (130-400); RED BLOOD COUNT 3.27 10*6/uL (4.50-5.90); RED CELL DISTRI WIDTH 14.8 % (0-14.5); WHITE BLOOD COUNT 5.7 10*3/uL (4.8-10.8)
[2016-06-09 06:31] LABS: CKMB 1.2 ng/ml (0.5-3.6)
[2016-06-09 06:35] LABS: TROPONIN I 0.065 ng/ml (<0.045)
[2016-06-09 06:37] LABS: HEMOGLOBIN A1c 4.5 % (4.8-5.6)
[2016-06-09 07:00] LABS: CHLORIDE 98 mmol/L (98-107); POTASSIUM 4.1 mmol/L (3.5-5.1); SODIUM 140 mmol/L (136-145)
[2016-06-09 07:03] LABS: PROTHROMBIN TIME 10.8 SECONDS (9.0-12.4)
[2016-06-09 07:17] LABS: ALKALINE PHOSPHATASE 54 U/L (45-117); BILIRUBIN, TOTAL 0.5 mg/dl (0.2-1.0); BUN 13 mg/dl (7-24); CARBON DIOXIDE 31 mmol/L (21-32); CHOLESTEROL 148 mg/dL (<200); EST GLOM FILT AFRICAN AMERICAN > 60 ml/min; FREE T4 1.21 ng/dl (0.76-1.46); GLUCOSE 123 mg/dL (65-99); HDL CHOLESTEROL 79 mg/dl (40-60); LDL CHOLESTEROL 58 mg/dL (9-159); PHOSPHOROUS 3.3 mg/dL (2.5-4.9); SGOT/AST 12 IU/L (3-35); SGPT/ALT 15 U/L (12-78); THYROID STIM HORMONE (HS) 0.564 uIU/ml (0.358-4.75); TOTAL PROTEIN 6.7 gm/dL (6.4-8.2); TRIGLYCERIDES 56 mg/dl (<150); VLDL CHOLESTEROL 11 mg/dL (6-40)
[2016-06-09 07:18] LABS: VITAMIN D, 25-HYDROXY 16.5 ng/mL (30-100)
[2016-06-09 07:19] LABS: FOLIC ACID 8.5 ng/mL (>5.38)
[2016-06-09 08:00] VITALS: BP 118/90
[2016-06-09 12:00] VITALS: BP 120/80
[2016-06-09 16:00] VITALS: BP 126/83
[2016-06-09 20:00] VITALS: BP 128/79
[2016-06-10] VITALS: BP 134/84
[2016-06-10 08:00] VITALS: BP 147/90
[2016-06-10 12:00] VITALS: BP 149/79
[2016-06-10 16:00] VITALS: BP 138/88
[2016-06-10 20:00] VITALS: BP 152/86
[2016-06-11] VITALS: BP 142/88
[2016-06-11 07:00] LABS: BASO % 0.1 % (0.0-1.0); HEMATOCRIT 33.9 % (42.0-52.0); HEMOGLOBIN 10.9 g/dl (14.0-18.0); IG # 0.2 10*3/uL (0.0-0.1); LYMPH # 1.3 10*3/uL (1.3-4.4); LYMPH % 9.4 % (27.0-41.0); MEAN CELL VOLUME 89.2 fl (80.0-94.0); MEAN CORPUSCULAR HGB 28.7 pg (27.0-31.0); MEAN CORPUSCULAR HGB CONC 32.2 g/dl (33.0-37.0); MEAN PLATELET VOLUME 9.7 fl (9.6-12.3); MONO # 1.2 10*3/uL (0.1-1.0); MONO % 8.8 % (3.0-9.0); NEUT % 80.2 % (47.0-73.0); PLATELET COUNT AUTOMATED 287 10*3/uL (130-400); RED CELL DISTRI WIDTH 15.8 % (0-14.5); WHITE BLOOD COUNT 13.7 10*3/uL (4.8-10.8)
[2016-06-11 07:29] LABS: ALBUMIN 3.5 gm/dl (3.1-4.5); ALKALINE PHOSPHATASE 49 U/L (45-117); BILIRUBIN, TOTAL 0.5 mg/dl (0.2-1.0); BUN 8 mg/dl (7-24); CARBON DIOXIDE 31 mmol/L (21-32); CHLORIDE 101 mmol/L (98-107); EST GLOM FILT AFRICAN AMERICAN > 60 ml/min; GLUCOSE 98 mg/dL (65-99); MAGNESIUM 2.2 mg/dL (1.5-2.1); POTASSIUM 3.7 mmol/L (3.5-5.1); SGOT/AST 30 IU/L (3-35); SGPT/ALT 24 U/L (12-78); SODIUM 142 mmol/L (136-145); TOTAL PROTEIN 7.4 gm/dL (6.4-8.2)
[2016-06-11 08:00] VITALS: BP 150/80; BP 160/80
[2016-06-11 12:00] VITALS: BP 158/90
[2016-06-11 16:00] VITALS: BP 148/93
[2016-06-11 20:00] VITALS: BP 142/86
[2016-06-12] VITALS: BP 135/95
[2016-06-12 05:09] LABS: RBC 3.93 x10E6/uL (4.14-5.80)
[2016-06-12 06:27] LABS: BASO % 0.1 % (0.0-1.0); HEMATOCRIT 28.4 % (42.0-52.0); HEMOGLOBIN 9.2 g/dl (14.0-18.0); IG # 0.1 10*3/uL (0.0-0.1); LYMPH # 0.8 10*3/uL (1.3-4.4); MEAN CELL VOLUME 88.8 fl (80.0-94.0); MEAN CORPUSCULAR HGB 28.8 pg (27.0-31.0); MEAN CORPUSCULAR HGB CONC 32.4 g/dl (33.0-37.0); MEAN PLATELET VOLUME 9.6 fl (9.6-12.3); MONO # 0.9 10*3/uL (0.1-1.0); MONO % 9.1 % (3.0-9.0); NEUT # 7.5 10*3/uL (2.3-7.9); NEUT % 81.2 % (47.0-73.0); PLATELET COUNT AUTOMATED 243 10*3/uL (130-400); RED CELL DISTRI WIDTH 15.9 % (0-14.5); WHITE BLOOD COUNT 9.3 10*3/uL (4.8-10.8)
[2016-06-12 06:56] LABS: ALBUMIN 2.9 gm/dl (3.1-4.5); BUN 13 mg/dl (7-24); CARBON DIOXIDE 27 mmol/L (21-32); CHLORIDE 103 mmol/L (98-107); GLUCOSE 114 mg/dL (65-99); POTASSIUM 3.4 mmol/L (3.5-5.1); SGOT/AST 40 IU/L (3-35); SGPT/ALT 46 U/L (12-78); SODIUM 140 mmol/L (136-145)
[2016-06-12 06:59] LABS: ALKALINE PHOSPHATASE 42 U/L (45-117); BILIRUBIN, TOTAL 0.6 mg/dl (0.2-1.0); EST GLOM FILT AFRICAN AMERICAN > 60 ml/min; TOTAL PROTEIN 5.9 gm/dL (6.4-8.2)
[2016-06-12 08:00] VITALS: BP 130/78
[2016-06-12 08:15] LABS: HEPATITIS C VIRUS ANTIBODY 0.4 s/co (0.0-0.9)
[2016-06-12 12:00] VITALS: BP 101/67
[2016-06-12 15:12] LABS: ABG BASE EXCESS 5.1 mmol/L (-2.0-2.0); ABG CO2 CONTENT 31.9 mmol/L (23-27); ABG HCO3 30.4 mmol/l (22-26); ABG TEMPERATURE 97.6 F (98.0-99.0); ARTERIAL BLOOD GAS PH 7.398 (7.35-7.45)
[2016-06-12 15:19] LABS: ARTERIAL BLOOD GAS PO2 21.6 mmHg (80-90)
[2016-06-12 15:42] LABS: ABG BASE EXCESS 3.2 mmol/L (-2.0-2.0); ABG HCO3 26.8 mmol/l (22-26); ABG TEMPERATURE 97.6 F (98.0-99.0); ARTERIAL BLOOD GAS PH 7.462 (7.35-7.45); ARTERIAL BLOOD GAS PO2 63.7 mmHg (80-90)
[2016-06-12 16:00] VITALS: BP 111/90
[2016-06-12 20:00] VITALS: BP 107/86
[2016-06-13] VITALS: BP 140/74
[2016-06-13 06:37] LABS: HEMATOCRIT 30.3 % (42.0-52.0); HEMOGLOBIN 9.5 g/dl (14.0-18.0); IG # 0.1 10*3/uL (0.0-0.1); LYMPH # 0.8 10*3/uL (1.3-4.4); MEAN CORPUSCULAR HGB CONC 31.4 g/dl (33.0-37.0); MEAN PLATELET VOLUME 9.6 fl (9.6-12.3); MONO # 0.5 10*3/uL (0.1-1.0); MONO % 5.9 % (3.0-9.0); NEUT # 7.2 10*3/uL (2.3-7.9); NEUT % 84.5 % (47.0-73.0); PLATELET COUNT AUTOMATED 263 10*3/uL (130-400); RED BLOOD COUNT 3.28 10*6/uL (4.50-5.90); RED CELL DISTRI WIDTH 15.8 % (0-14.5); WHITE BLOOD COUNT 8.5 10*3/uL (4.8-10.8)
[2016-06-13 06:39] LABS: MEAN CELL VOLUME 92.4 fl (80.0-94.0)
[2016-06-13 06:57] LABS: BUN 21 mg/dl (7-24); CARBON DIOXIDE 31 mmol/L (21-32); CHLORIDE 103 mmol/L (98-107); EST GLOM FILT AFRICAN AMERICAN > 60 ml/min; GLUCOSE 73 mg/dL (65-99); POTASSIUM 3.7 mmol/L (3.5-5.1); SODIUM 144 mmol/L (136-145)
[2016-06-13 08:00] VITALS: BP 131/78
[2016-06-13 12:00] VITALS: BP 128/77
[2016-06-13 16:00] VITALS: BP 126/76
[2016-06-13 20:00] VITALS: BP 130/86
[2016-06-14] VITALS: BP 131/72
[2016-06-14 06:47] LABS: EOS % 0.3 % (1.0-4.0); HEMATOCRIT 29.5 % (42.0-52.0); HEMOGLOBIN 9.3 g/dl (14.0-18.0); IG # 0.1 10*3/uL (0.0-0.1); LYMPH # 0.8 10*3/uL (1.3-4.4); LYMPH % 11.1 % (27.0-41.0); MEAN CELL VOLUME 92.2 fl (80.0-94.0); MEAN CORPUSCULAR HGB 29.1 pg (27.0-31.0); MEAN CORPUSCULAR HGB CONC 31.5 g/dl (33.0-37.0); MEAN PLATELET VOLUME 9.5 fl (9.6-12.3); MONO # 0.6 10*3/uL (0.1-1.0); MONO % 8.1 % (3.0-9.0); NEUT # 5.5 10*3/uL (2.3-7.9); NEUT % 79.8 % (47.0-73.0); PLATELET COUNT AUTOMATED 240 10*3/uL (130-400); RED CELL DISTRI WIDTH 15.9 % (0-14.5); WHITE BLOOD COUNT 6.8 10*3/uL (4.8-10.8)
[2016-06-14 06:56] LABS: BUN 21 mg/dl (7-24); CARBON DIOXIDE 32 mmol/L (21-32); CHLORIDE 106 mmol/L (98-107); EST GLOM FILT AFRICAN AMERICAN > 60 ml/min; GLUCOSE 78 mg/dL (65-99); POTASSIUM 3.3 mmol/L (3.5-5.1); SODIUM 146 mmol/L (136-145)
[2016-06-14 06:58] LABS: VANCOMYCIN TROUGH 12.7 ug/mL (10-20)
[2016-06-14 08:00] VITALS: BP 170/78
[2016-06-14 12:00] VITALS: BP 133/71
[2016-06-14 16:00] VITALS: BP 133/71
[2016-06-14 18:05] LABS: G-6-PD, QUANT 345 (146-376)
[2016-06-14 20:00] VITALS: BP 139/79
[2016-06-15] VITALS: BP 153/87
[2016-06-15 08:00] VITALS: BP 144/74
[2016-06-15 12:00] VITALS: BP 107/76
[2016-06-15] MEDS ORDERED: LEVAQUIN750 M1 PO (14:24)
[2016-06-15] MEDS ORDERED: PREDNISONE10 MG PO (14:24)
[2016-06-15] MEDS ORDERED: MUCINEX ER600 MG PO (14:24)
[2016-06-15 16:00] VITALS: BP 110/80
[2016-06-15 20:00] VITALS: BP 137/76
== END 2016-06-15 20:32 | disposition home health service (06) | DRG 871 ==
LOC: ED 09:20 → EDHOLD 11:15 → 4E 11:15 → 3N 06-15 17:14 → 4E 06-15 17:14
PROVIDERS: Emergency Medicine; Hospitalist; Internal Medicine; Internal Medicine Critical Care Medicine
PROC: BD1BYZZ Fluoroscopy of Mouth/Oropharynx using Other Contrast (ICD-10-PCS; principal; 2016-06-11)
DX: A41.9 Sepsis, unspecified organism (principal); J18.9 Pneumonia, unspecified organism; E43 Unspecified severe protein-calorie malnutrition; G93.41 Metabolic encephalopathy; J96.11 Chronic respiratory failure with hypoxia; R13.12 Dysphagia, oropharyngeal phase; I31.3 Pericardial effusion (noninflammatory); I48.0 Paroxysmal atrial fibrillation; G30.9 Alzheimer's disease, unspecified; F05 Delirium due to known physiological condition; J44.1 Chronic obstructive pulmonary disease with (acute) exacerbation; J44.0 Chronic obstructive pulmonary disease with (acute) lower respiratory infection; F33.9 Major depressive disorder, recurrent, unspecified; Z68.1 Body mass index [BMI] 19.9 or less, adult; K44.9 Diaphragmatic hernia without obstruction or gangrene; E78.5 Hyperlipidemia, unspecified; Z82.49 Family history of ischemic heart disease and other diseases of the circulatory system; Z80.9 Family history of malignant neoplasm, unspecified; E53.8 Deficiency of other specified B group vitamins; E55.9 Vitamin D deficiency, unspecified; R62.7 Adult failure to thrive; I48.2 Chronic atrial fibrillation; Z79.01 Long term (current) use of anticoagulants; E78.00 Pure hypercholesterolemia, unspecified; J20.9 Acute bronchitis, unspecified; D64.9 Anemia, unspecified; I07.1 Rheumatic tricuspid insufficiency; E83.41 Hypermagnesemia; R91.8 Other nonspecific abnormal finding of lung field; E87.6 Hypokalemia; F02.80 Dementia in other diseases classified elsewhere, unspecified severity, without behavioral disturbance, psychotic disturbance, mood disturbance, and anxiety

== ENCOUNTER 2016-06-15 17:16 | Inpatient (IN) | payer MEDICARE ==
[~2016-06-15] VITALS: Ht 167.6 cm; Wt 44.4 kg
--- NOTE | ~2016-06-15 | PR ---
[place], [place] PROGRESS NOTE NAME: ALE SALINAS UNIT #: [id number] ROOM: 315 DOCTOR: MATIAS LAGUNAS MD BIRTHDATE: [birth year] DOS: 06/19/2016 INTERVAL NOTE CHIEF COMPLAINT: "They are over there, that is what I need to give." SUMMARY OF THE VISIT: The patient was interviewed as he rested quietly in bed. He once again seemed very confused and disoriented, almost delirious. He was pleasant; however, and smiled readily. His responses to me for the most part made little to no sense. MENTAL STATUS: He is alert and oriented to self. It is unclear if he realizes he is in the hospital. He is certainly not oriented to time. Mood does still seem to be somewhat labile and that he will at times have anxious periods and depressed periods. There is no symptom suggestive of hypomania or kali. There are no auditory or visual hallucinations, although he does seem to be somewhat delusional in his conversation, how much of this is because of the delirium is unclear. Short-term memory is exceedingly poor. PLAN: At the present time, I will maintain his current dose of Exelon patch, but increase the Namenda from 5 mg a day to 5 mg twice a day with the target dose of 20 mg a day in mind. Maintain the Remeron to combat depression and stimulate the appetite. Engage in individual and leon milieu activity with the plan to return to the least restrictive environment, most likely a long-term care facility when psychiatrically stable. MATIAS LAGUNAS MD CM:PNTRANS [id number] MATIAS LAGUNAS MD 06/19/16 1134 interface
--- NOTE | ~2016-06-15 | DS ---
[place], [place] DISCHARGE SUMMARY NAME: ALE SALINAS [facility] #: [id number] UNIT #: [id number] ROOM: 315 DOCTOR: MATIAS LAGUNAS MD BIRTHDATE: [birth year] DOS: 06/21/2016 CHIEF COMPLAINT: "I came from over there, what is going on." HISTORY OF PRESENT ILLNESS: This is a 71-year-old white male who was admitted to the medical floor due to an exacerbation of COPD. The patient has been treated with IV antibiotics, steroids and breathing treatments and subsequently stabilized medically; however, while on the medical unit, he was found to be acutely confused and very depressed. He had not been sleeping well, eating well and was quite disjointed and delusional in his thinking. Given the severity of his symptoms, it was felt that the patient would require inpatient stabilization on the [facility] to place him on the appropriate medicines and also determine if he should return back to be assisted living ministries or go into a more supportive environment. He was now admitted to the [facility] to do the following. PAST MEDICAL HISTORY: For this gentleman is remarkable for Alzheimer dementia, atrial fibrillation with rapid ventricular response, vitamin B12 deficiency, coronary artery disease, COPD, esophagitis, hiatal hernia, hyperlipidemia, hypertension, SVT and vitamin D deficiency. SUMMARY OF HOSPITAL COURSE: The patient was admitted to the unit, where he had his Cymbalta discontinued and Remeron 15 mg at bedtime was started. Remeron was picked to stimulate his appetite. One of his major symptoms was poor appetite. Additionally, he had poor sleep, and it was felt that the Remeron would improve both of these more quicker. He had been started on Exelon patch while on the medical floor, and this was moved from the 4.6 mg a day dose to 9.5 mg a day, Namenda was eventually added at 5 mg a day and increased to 10 mg a day to augment the effectiveness of the Exelon in improving and maintaining ADL maintenance, behavior and cognition. The patient continued not to eat or drink well. He still did not sleep well and seemed extremely depressed. Eventually Marinol 2.5 mg twice daily was added to stimulate his appetite. However, the patient continued to deteriorate medically. The patient's white count on the day of discharge was markedly elevated at 16.8, and it was decided that his medical needs far outweighed his psychiatric at this point, and he was then discharged and transferred to the Intensive Care Unit at [facility]. MENTAL STATUS AT DISCHARGE: The patient was alert and oriented to self. He was conversant. He seems still rather depressed and did not want any intervention. When asked if he was hungry or thirsty he shook his head no. Asked if he was cold, he did nod yes, but when asked if he wanted a blanket, he shook his head no. There were no symptoms of hypomania or kali. There were no acute psychotic symptoms elicited. Memory was extremely poor. FINAL DIAGNOSES: Major depression, recurrent, and Alzheimer dementia. PLAN: At this point in time, the patient has been discharged from the [facility] and will be sent to ICU for further medical stabilization. [place], [place] DISCHARGE SUMMARY NAME: ALE SALINAS UNIT #: [id number] ROOM: [facility] DOCTOR: MATIAS LAGUNAS MD BIRTHDATE: [birth year] MATIAS LAGUNAS MD CM:DISCHARG 8 MATIAS LAGUNAS MD 06/21/16858 interface
--- NOTE | ~2016-06-15 | PR ---
[place], [place] PROGRESS NOTE NAME: ALE SALINAS UNIT #: [id number] ROOM: 315 DOCTOR: MATIAS LAGUNAS MD BIRTHDATE: [birth year] DOS: 06/20/2016 CHIEF COMPLAINT: "I guess it's over there." SUMMARY OF THE VISIT: The patient was interviewed as he rested in bed. His responses still tend to be very short, simple, and oftentimes inappropriate. Nurses report that he has not been eating well despite much encouragement. He has not been agitated or aggressive. MENTAL STATUS: He is alert and oriented to self. It is unclear if he realizes he is in the hospital. He is certainly not oriented to time. Mood does seem to be depressed, and he is despondent. Affect is rather flat and blunted. There is no hypomania or kali. There are no overt auditory or visual hallucinations. Memory is very poor. PLAN: Given the fact that his appetite is so poor, I will try to stimulate it with Marinol 2.5 mg b.i.d. My hope is that this will give him a strong biologic urge to eat. Some of his poor appetite I do believe is because he is physically decompensated to such a point. We will need to monitor him closely. We will leave the decision regarding further medical treatment up to the hospitalist and will discharge then when stable to the least restrictive environment. MATIAS LAGUNAS MD CM:PNTRANS [id number] MATIAS LAGUNAS MD 06/20/16 1018 interface
--- NOTE | ~2016-06-15 | WRIGHTHP ---
[place], [place] PATIENT HISTORY AND PHYSICAL EXAM [id number] UNIT #: [id number] ROOM: 315 DOCTOR: MATIAS LAGUNAS MD BIRTHDATE: [birth year] DOS: 06/16/2016 INITIAL PSYCHIATRIC EVALUATION CHIEF COMPLAINT: "I came from over there, what's going on." HISTORY OF PRESENT ILLNESS: This is a 71-year-old white male who was admitted to the medical floor due to an exacerbation of COPD. The patient was treated with IV antibiotics, steroids and breathing treatments and subsequently stabilized; however, while on the medical unit, he was found to be acutely confused and very depressed. He was not sleeping well, eating well and was quite disjointed and delusional in his thinking. It was felt that the psychiatric symptoms needed to be further monitored and assessed and treated before he could return to the appropriate placement. The patient did previously reside at assisted living ministries and assisted living facility, but due to his physical decline may require more intensive supervision. The patient does have a past medical history remarkable for Alzheimer dementia, atrial fibrillation with rapid ventricular response, vitamin B12 deficiency, coronary artery disease, COPD, esophagitis, hiatal hernia, hyperlipidemia, hypertension, SVT, vitamin D deficiency. MENTAL STATUS: The patient is alert and oriented to self only. He is very confused and disoriented. His thoughts are rather fragmented and disjointed and his responses often are inappropriate. He does seem depressed and he also has some delusions noted. Short term memory is exceptionally poor and he processes slowly. DIAGNOSIS: Major depression, recurrent, severe, rule out with psychotic features. PLAN: I will discontinue his Cymbalta in lieu of Remeron 15 mg at bedtime in order to aid sleep and appetite more effectively. I have started him on Exelon patch 4.6 mg a day, which will be gradually titrated upward as needed and as tolerated. I will go ahead and augment this with Namenda 5 mg a day with the plan also to titrate this up to its maximum dose. I have discussed this case with [employer] and the present time, he does not appear like he would be appropriate for an assisted living facility, but rather would require more intensive care in a long-term care facility. Along these lines, [employer] will start the ____ process and he will be discharged then to the appropriate place when psychiatrically stable. [place], [place] PATIENT HISTORY AND PHYSICAL EXAM NAME: ALE SALINAS UNIT #: [id number] ROOM: [facility] DOCTOR: MATIAS LAGUNAS MD BIRTHDATE: [birth year] MATIAS LAGUNAS MD CM:HISPHYS:PATIENT HISTORY AND PHYSICAL EXAMINATION 2 1018 MATIAS LAGUNAS MD 06/16/16 1018 interface
--- NOTE | ~2016-06-15 | PR ---
[place], [place] PROGRESS NOTE [id number] UNIT #: [id number] ROOM: 315 DOCTOR: ISELA REY BIRTHDATE: [birth year] DOS: 06/17/2016 SUBJECTIVE: This is assessed in the dining room where he engaged in nonsensical conversation. The patient was unable to feed himself. He had to be fed by nurses. He is very cachectic looking, confused, but pleasant with me today. MENTAL STATUS: He is alert and oriented to self only. Again, confused and disoriented, responses to questions nonsensical. No overt signs of auditory or visual hallucinations, maybe some delusions, very poor memory. ASSESSMENT AND PLAN: He had a lot of medication adjustments yesterday. We started him on Remeron. We started him on Exelon patch and we started him on Namenda. I am going to go ahead and monitor him over the next 24 hours. If he continues to do well, most likely we will increase his Exelon tomorrow. We will try to engage in individual and leon milieu therapy, but at this time we are just trying to stabilize him and see how he responds to the medications. PATY REY CNP CM:PNTRANS [id number] ISELA REY 06/17/16 1452 interface
[~2016-06-15 17:16] MED LIST changes: +LEVAQUIN750 M1 PO; +MUCINEX ER600 MG PO
[2016-06-15 21:00] VITALS: BP 137/76
[2016-06-15 22:00] VITALS: BP 137/76
[2016-06-16 07:46] LABS: BASO % 0.1 % (0.0-1.0); EOS # 0.3 10*3/uL (0.0-0.4); EOS % 2.9 % (1.0-4.0); HEMOGLOBIN 10.4 g/dl (14.0-18.0); IG # 0.1 10*3/uL (0.0-0.1); LYMPH # 0.9 10*3/uL (1.3-4.4); LYMPH % 10.9 % (27.0-41.0); MEAN CELL VOLUME 90.1 fl (80.0-94.0); MEAN CORPUSCULAR HGB 29.3 pg (27.0-31.0); MEAN CORPUSCULAR HGB CONC 32.5 g/dl (33.0-37.0); MEAN PLATELET VOLUME 9.5 fl (9.6-12.3); MONO # 0.6 10*3/uL (0.1-1.0); NEUT # 6.8 10*3/uL (2.3-7.9); NEUT % 78.4 % (47.0-73.0); PLATELET COUNT AUTOMATED 226 10*3/uL (130-400); RED BLOOD COUNT 3.55 10*6/uL (4.50-5.90); WHITE BLOOD COUNT 8.6 10*3/uL (4.8-10.8)
[2016-06-16 07:52] VITALS: BP 146/88
[2016-06-16 07:59] LABS: ALKALINE PHOSPHATASE 41 U/L (45-117); BILIRUBIN, TOTAL 0.5 mg/dl (0.2-1.0); BUN 10 mg/dl (7-24); CARBON DIOXIDE 30 mmol/L (21-32); CHLORIDE 100 mmol/L (98-107); CHOLESTEROL 190 mg/dL (<200); EST GLOM FILT AFRICAN AMERICAN > 60 ml/min; GLUCOSE 80 mg/dL (65-99); HDL CHOLESTEROL 81 mg/dl (40-60); LDL CHOLESTEROL 78 mg/dL (9-159); POTASSIUM 3.1 mmol/L (3.5-5.1); SGOT/AST 24 IU/L (3-35); SGPT/ALT 36 U/L (12-78); SODIUM 139 mmol/L (136-145); TRIGLYCERIDES 154 mg/dl (<150); VLDL CHOLESTEROL 31 mg/dL (6-40)
[2016-06-16 09:01] LABS: VITAMIN D, 25-HYDROXY 13.7 ng/mL (30-100)
[2016-06-16 19:43] VITALS: BP 116/69
[2016-06-16 19:45] VITALS: BP 127/79
[2016-06-17 07:22] VITALS: BP 140/82
[2016-06-17 20:37] VITALS: BP 112/72
[2016-06-18 07:11] VITALS: BP 150/80
[2016-06-18 20:06] VITALS: BP 122/67
[2016-06-19 08:40] VITALS: BP 132/86
[2016-06-19 20:00] VITALS: BP 128/72
[2016-06-20 09:12] VITALS: BP 142/82
[2016-06-20 18:37] LABS: BUN 46 mg/dl (7-24); CARBON DIOXIDE 33 mmol/L (21-32); CHLORIDE 110 mmol/L (98-107); EST GLOM FILT AFRICAN AMERICAN > 60 ml/min; GLUCOSE 93 mg/dL (65-99); SODIUM 153 mmol/L (136-145)
[2016-06-20 20:00] VITALS: BP 144/89
[2016-06-21 02:25] VITALS: BP 126/72
[2016-06-21 03:12] VITALS: BP 121/77
[2016-06-21 07:08] LABS: BUN 46 mg/dl (7-24); CARBON DIOXIDE 39 mmol/L (21-32); CHLORIDE 108 mmol/L (98-107); EST GLOM FILT AFRICAN AMERICAN > 60 ml/min; GLUCOSE 99 mg/dL (65-99); HEMATOCRIT 40.1 % (42.0-52.0); HEMOGLOBIN 12.4 g/dl (14.0-18.0); MEAN CELL VOLUME 95.9 fl (80.0-94.0); MEAN CORPUSCULAR HGB 29.7 pg (27.0-31.0); MEAN CORPUSCULAR HGB CONC 30.9 g/dl (33.0-37.0); MEAN PLATELET VOLUME 10.4 fl (9.6-12.3); PLATELET COUNT AUTOMATED 184 10*3/uL (130-400); POTASSIUM 3.8 mmol/L (3.5-5.1); RED BLOOD COUNT 4.18 10*6/uL (4.50-5.90); RED CELL DISTRI WIDTH 17.6 % (0-14.5); SODIUM 152 mmol/L (136-145); WHITE BLOOD COUNT 16.8 10*3/uL (4.8-10.8)
[2016-06-21 07:35] LABS: LYMPHOCYTE # 0.7 10*3/uL (1.3-4.4); MONOCYTE # 0.7 10*3/uL (0.1-1.0); NEUTROPHIL # 15.5 10*3/uL (2.3-7.9); NEUTROPHILS 92 % (47-73); PLATELET SUFFICIENCY NORMAL (NORMAL); TOTAL CELLS COUNTED 100 #CELLS
[2016-06-21] MEDS ORDERED: MARINOL2.5 M1 PO (08:05)
[2016-06-21] MEDS ORDERED: MIRTAZAPINE15 M2 PO (08:05)
[2016-06-21] MEDS ORDERED: VITAMIN D50000 I3 PO (08:05)
[2016-06-21] MEDS ORDERED: NAMENDA-5 PO (08:05)
[2016-06-21] MEDS ORDERED: RIVASTIGMINE1 EAC1 T (08:05)
[2016-06-21] MEDS ORDERED: NYSTATIN100000 U/M PO (08:20)
[2016-06-21] MEDS ORDERED: REMEDY WITH OLI1 PAS T (08:20)
[2016-06-21] MEDS ORDERED: MAG-AL PLUS 3030 ML PO (08:20)
== END 2016-06-21 09:30 | disposition short-term general hospital (02) | DRG 56 ==
LOC: 3N 17:16
PROVIDERS: Internal Medicine; Psychiatry & Neurology Psychiatry; Student in an Organized Health Care Education/Training Program
DX: G30.9 Alzheimer's disease, unspecified (principal); G93.41 Metabolic encephalopathy; J18.9 Pneumonia, unspecified organism; F02.80 Dementia in other diseases classified elsewhere, unspecified severity, without behavioral disturbance, psychotic disturbance, mood disturbance, and anxiety; I48.2 Chronic atrial fibrillation; D53.9 Nutritional anemia, unspecified; F33.2 Major depressive disorder, recurrent severe without psychotic features; J44.1 Chronic obstructive pulmonary disease with (acute) exacerbation; J44.0 Chronic obstructive pulmonary disease with (acute) lower respiratory infection; I25.10 Atherosclerotic heart disease of native coronary artery without angina pectoris; E78.5 Hyperlipidemia, unspecified; I10 Essential (primary) hypertension; K44.9 Diaphragmatic hernia without obstruction or gangrene; K29.70 Gastritis, unspecified, without bleeding; K20.9 Esophagitis, unspecified; E55.9 Vitamin D deficiency, unspecified; E53.8 Deficiency of other specified B group vitamins; Z98.42 Cataract extraction status, left eye; Z98.41 Cataract extraction status, right eye; Z87.891 Personal history of nicotine dependence; Z72.0 Tobacco use; Z82.49 Family history of ischemic heart disease and other diseases of the circulatory system; Z80.9 Family history of malignant neoplasm, unspecified; Z79.2 Long term (current) use of antibiotics; Z79.899 Other long term (current) drug therapy

== ENCOUNTER 2016-06-21 08:55 | Inpatient (IN) | payer MEDICARE ==
[~2016-06-21] VITALS: Ht 175.3 cm; Wt 42.3 kg
[~2016-06-21 08:55] MED LIST changes: +MAG-AL PLUS 3030 ML PO; +MARINOL2.5 M1 PO; +MIRTAZAPINE15 M2 PO; +NAMENDA-5 PO; +NYSTATIN100000 U/M PO; +REMEDY WITH OLI1 PAS T; +RIVASTIGMINE1 EAC1 T; +VITAMIN D50000 I3 PO
[2016-06-21 09:40] VITALS: BP 131/68
[2016-06-21 12:00] VITALS: BP 103/69
[2016-06-21 16:00] VITALS: BP 97/73
[2016-06-21 17:45] LABS: BILIRUBIN NEGATIVE (NEGATIVE); BLOOD NEGATIVE (NEGATIVE); CLARITY CLEAR (CLEAR); COLOR YELLOW (YELLOW); GLUCOSE NEGATIVE (NEGATIVE); KETONE TRACE (NEGATIVE); LEUKO ESTERASE NEGATIVE (NEGATIVE); NITRITE NEGATIVE (NEGATIVE); PH 5.5 (5.0-9.0); PROTEIN NEGATIVE (NEGATIVE); SPECIFIC GRAVITY 1.025 (1.005-1.030); UROBILINOGEN 0.2 E.U./dl (0.2-1.0)
[2016-06-21 17:52] LABS: BACTERIA 2+
[2016-06-21 17:53] LABS: URINE REFLEX COMMENT YES (NO)
[2016-06-21 20:00] VITALS: BP 130/76
[2016-06-21 20:18] LABS: CKMB 1.1 ng/ml (0.5-3.6); CPK 155 U/L (39-308)
[2016-06-21 20:19] LABS: TROPONIN I < 0.015 ng/ml (<0.045)
[2016-06-21 21:52] LABS: LA>2 REFLEX 2 HR DRAW NOW
[2016-06-22] VITALS: BP 141/96
[2016-06-22 00:25] LABS: CKMB 0.9 ng/ml (0.5-3.6); TROPONIN I 0.018 ng/ml (<0.045)
[2016-06-22 04:00] VITALS: BP 126/69
[2016-06-22 05:51] LABS: CKMB 0.9 ng/ml (0.5-3.6); CPK 154 U/L (39-308); TROPONIN I < 0.015 ng/ml (<0.045)
[2016-06-22 05:58] LABS: HEMATOCRIT 37.4 % (42.0-52.0); HEMOGLOBIN 11.6 g/dl (14.0-18.0); MEAN CELL VOLUME 96.6 fl (80.0-94.0); PLATELET COUNT AUTOMATED 151 10*3/uL (130-400); RED BLOOD COUNT 3.87 10*6/uL (4.50-5.90); RED CELL DISTRI WIDTH 17.2 % (0-14.5); WHITE BLOOD COUNT 15.3 10*3/uL (4.8-10.8)
[2016-06-22 06:06] LABS: ALBUMIN 2.9 gm/dl (3.1-4.5); BILIRUBIN, TOTAL 1.4 mg/dl (0.2-1.0); BUN 48 mg/dl (7-24); CARBON DIOXIDE 37 mmol/L (21-32); CHLORIDE 108 mmol/L (98-107); EST GLOM FILT AFRICAN AMERICAN > 60 ml/min; GLUCOSE 134 mg/dL (65-99); MAGNESIUM 2.8 mg/dL (1.5-2.1); PHOSPHOROUS 2.9 mg/dL (2.5-4.9); POTASSIUM 3.8 mmol/L (3.5-5.1); SGOT/AST 54 IU/L (3-35); SGPT/ALT 62 U/L (12-78); SODIUM 152 mmol/L (136-145); TOTAL PROTEIN 6.2 gm/dL (6.4-8.2)
[2016-06-22 06:13] LABS: ALKALINE PHOSPHATASE 51 U/L (45-117)
[2016-06-22 06:34] LABS: ACANTHOCYTES FEW; LYMPHOCYTE # 0.5 10*3/uL (1.3-4.4); MONOCYTE # 0.8 10*3/uL (0.1-1.0); NEUTROPHIL # 14.1 10*3/uL (2.3-7.9); NEUTROPHILS 92 % (47-73); PLATELET SUFFICIENCY NORMAL (NORMAL); TOTAL CELLS COUNTED 100 #CELLS
[2016-06-22 08:00] VITALS: BP 142/90
[2016-06-22 12:00] VITALS: BP 112/71
[2016-06-22 20:00] VITALS: BP 154/83
[2016-06-23] VITALS: BP 100/65
[2016-06-23 06:33] LABS: BASO % 0.1 % (0.0-1.0); EOS # 0.1 10*3/uL (0.0-0.4); EOS % 0.8 % (1.0-4.0); HEMATOCRIT 34.4 % (42.0-52.0); HEMOGLOBIN 10.7 g/dl (14.0-18.0); IG # 0.1 10*3/uL (0.0-0.1); LYMPH # 0.8 10*3/uL (1.3-4.4); LYMPH % 6.8 % (27.0-41.0); MEAN CELL VOLUME 95.6 fl (80.0-94.0); MEAN CORPUSCULAR HGB 29.7 pg (27.0-31.0); MEAN CORPUSCULAR HGB CONC 31.1 g/dl (33.0-37.0); MEAN PLATELET VOLUME 9.7 fl (9.6-12.3); MONO # 0.5 10*3/uL (0.1-1.0); MONO % 4.2 % (3.0-9.0); NEUT # 10.9 10*3/uL (2.3-7.9); NEUT % 87.5 % (47.0-73.0); NUCLEATED RED BLOOD CELL 0.2 % (0.0-0.0); PLATELET COUNT AUTOMATED 135 10*3/uL (130-400); RED CELL DISTRI WIDTH 16.8 % (0-14.5); WHITE BLOOD COUNT 12.4 10*3/uL (4.8-10.8)
[2016-06-23 07:06] LABS: ALBUMIN 2.7 gm/dl (3.1-4.5); CARBON DIOXIDE 38 mmol/L (21-32); CHLORIDE 103 mmol/L (98-107); EST GLOM FILT AFRICAN AMERICAN > 60 ml/min; GLUCOSE 88 mg/dL (65-99); POTASSIUM 3.1 mmol/L (3.5-5.1); SGOT/AST 71 IU/L (3-35); SGPT/ALT 95 U/L (12-78); SODIUM 148 mmol/L (136-145); TOTAL PROTEIN 5.6 gm/dL (6.4-8.2)
[2016-06-23 07:08] LABS: ALKALINE PHOSPHATASE 60 U/L (45-117); BILIRUBIN, TOTAL 1.3 mg/dl (0.2-1.0)
[2016-06-23 07:25] LABS: BUN 27 mg/dl (7-24)
[2016-06-23 08:00] VITALS: BP 106/72
[2016-06-23 12:00] VITALS: BP 100/57
[2016-06-23 16:00] VITALS: BP 100/58
[2016-06-23 20:00] VITALS: BP 111/61
[2016-06-24] VITALS: BP 107/68
[2016-06-24 06:49] LABS: BASO % 0.1 % (0.0-1.0); EOS # 0.3 10*3/uL (0.0-0.4); HEMOGLOBIN 10.6 g/dl (14.0-18.0); IG # 0.1 10*3/uL (0.0-0.1); LYMPH # 0.6 10*3/uL (1.3-4.4); LYMPH % 6.4 % (27.0-41.0); MEAN CELL VOLUME 94.2 fl (80.0-94.0); MEAN CORPUSCULAR HGB 29.4 pg (27.0-31.0); MEAN CORPUSCULAR HGB CONC 31.2 g/dl (33.0-37.0); MEAN PLATELET VOLUME 10.4 fl (9.6-12.3); MONO # 0.3 10*3/uL (0.1-1.0); MONO % 3.8 % (3.0-9.0); NEUT # 7.5 10*3/uL (2.3-7.9); NEUT % 86.1 % (47.0-73.0); PLATELET COUNT AUTOMATED 123 10*3/uL (130-400); RED BLOOD COUNT 3.61 10*6/uL (4.50-5.90); RED CELL DISTRI WIDTH 16.4 % (0-14.5); WHITE BLOOD COUNT 8.7 10*3/uL (4.8-10.8)
[2016-06-24 07:29] LABS: ALBUMIN 2.4 gm/dl (3.1-4.5); CARBON DIOXIDE 37 mmol/L (21-32); CHLORIDE 100 mmol/L (98-107); EST GLOM FILT AFRICAN AMERICAN > 60 ml/min; GLUCOSE 79 mg/dL (65-99); POTASSIUM 3.2 mmol/L (3.5-5.1); SGOT/AST 46 IU/L (3-35); SGPT/ALT 70 U/L (12-78); SODIUM 143 mmol/L (136-145); TOTAL PROTEIN 5.3 gm/dL (6.4-8.2)
[2016-06-24 07:32] LABS: ALKALINE PHOSPHATASE 53 U/L (45-117); BILIRUBIN, TOTAL 0.8 mg/dl (0.2-1.0)
[2016-06-24 07:54] LABS: BUN 17 mg/dl (7-24)
[2016-06-24 08:00] VITALS: BP 134/65
[2016-06-24 12:00] VITALS: BP 106/64
[2016-06-24 16:00] VITALS: BP 108/66
[2016-06-24 20:00] VITALS: BP 111/71
[2016-06-25] VITALS: BP 118/74
[2016-06-25 08:00] VITALS: BP 141/79
[2016-06-25 09:49] LABS: EOS # 0.2 10*3/uL (0.0-0.4); EOS % 2.9 % (1.0-4.0); HEMATOCRIT 32.5 % (42.0-52.0); HEMOGLOBIN 10.3 g/dl (14.0-18.0); IG # 0.1 10*3/uL (0.0-0.1); LYMPH # 0.6 10*3/uL (1.3-4.4); LYMPH % 7.1 % (27.0-41.0); MEAN CELL VOLUME 94.2 fl (80.0-94.0); MEAN CORPUSCULAR HGB 29.9 pg (27.0-31.0); MEAN CORPUSCULAR HGB CONC 31.7 g/dl (33.0-37.0); MEAN PLATELET VOLUME 9.6 fl (9.6-12.3); MONO # 0.4 10*3/uL (0.1-1.0); MONO % 4.8 % (3.0-9.0); NEUT # 7.1 10*3/uL (2.3-7.9); NEUT % 84.4 % (47.0-73.0); PLATELET COUNT AUTOMATED 117 10*3/uL (130-400); RED BLOOD COUNT 3.45 10*6/uL (4.50-5.90); RED CELL DISTRI WIDTH 16.7 % (0-14.5); WHITE BLOOD COUNT 8.4 10*3/uL (4.8-10.8)
[2016-06-25 09:59] LABS: BUN 12 mg/dl (7-24); CARBON DIOXIDE 38 mmol/L (21-32); CHLORIDE 102 mmol/L (98-107); EST GLOM FILT AFRICAN AMERICAN > 60 ml/min; GLUCOSE 87 mg/dL (65-99); POTASSIUM 3.5 mmol/L (3.5-5.1); SODIUM 144 mmol/L (136-145)
[2016-06-25 12:00] VITALS: BP 98/70
[2016-06-25 16:00] VITALS: BP 150/78
[2016-06-25] MEDS ORDERED: FLOMAX0.4 MG PO (16:16)
[2016-06-25] MEDS ORDERED: D-1000 185 MG-11 TAB PO (16:16)
== END 2016-06-25 18:47 | disposition hospice, home (50) | DRG 871 ==
LOC: ICCU 08:55 → 5E 06-22 18:20
PROVIDERS: Internal Medicine; Internal Medicine Hospice and Palliative Medicine; Student in an Organized Health Care Education/Training Program
DX: A41.9 Sepsis, unspecified organism (principal); J69.0 Pneumonitis due to inhalation of food and vomit; J96.21 Acute and chronic respiratory failure with hypoxia; E87.0 Hyperosmolality and hypernatremia; E43 Unspecified severe protein-calorie malnutrition; G30.9 Alzheimer's disease, unspecified; I48.2 Chronic atrial fibrillation; D69.6 Thrombocytopenia, unspecified; F02.80 Dementia in other diseases classified elsewhere, unspecified severity, without behavioral disturbance, psychotic disturbance, mood disturbance, and anxiety; E53.8 Deficiency of other specified B group vitamins; J44.9 Chronic obstructive pulmonary disease, unspecified; E78.5 Hyperlipidemia, unspecified; I10 Essential (primary) hypertension; F32.9 Major depressive disorder, single episode, unspecified; R62.7 Adult failure to thrive; D53.9 Nutritional anemia, unspecified; I25.10 Atherosclerotic heart disease of native coronary artery without angina pectoris; E87.6 Hypokalemia; Z98.42 Cataract extraction status, left eye; Z98.41 Cataract extraction status, right eye; Z95.5 Presence of coronary angioplasty implant and graft; Z87.891 Personal history of nicotine dependence; Z82.49 Family history of ischemic heart disease and other diseases of the circulatory system; Z80.9 Family history of malignant neoplasm, unspecified; Z79.82 Long term (current) use of aspirin; Z79.899 Other long term (current) drug therapy